=== PATIENT | male | born 1960 | race Asian ===

== ENCOUNTER 2022-03-18 06:04 | Day surgery (SDC) | payer BC ==
[2022-03-09 12:45] VITALS: BMI 25.8
[2022-03-18] MEDS ORDERED: PROPOFOL 20 ML ONE ×2 (07:13)
[2022-03-18] MEDS ORDERED: MIDAZOLAM HCL 2 MG/2 ML SINGLE DOSE VIAL ONE ×2 (07:13)
[2022-03-18] MEDS ORDERED: EPINEPHrine 1:1,000 1,000 MCG/ML ML ONE (07:19)
[2022-03-18] MEDS ORDERED: ROPIVACAINE HCL/PF 100 MG/20 ML VIAL ONE (07:24)
[2022-03-18] MEDS ORDERED: ONDANSETRON 4 MG/2 ML VIAL IVPUSH PRN (09:26)
[2022-03-18] MEDS ORDERED: oxyCODONE HCL 5 MG TABLET PO PRN (09:26)
[2022-03-18] MEDS ORDERED: LACTATED RINGERS SOLUTION 1,000 ML IV SCH (09:30)
[2022-03-18 10:25] VITALS: TEMP 98
[2022-03-18 11:57] VITALS: BP 118/71; PULSE 61
== END 2022-03-18 11:55 | disposition home or self-care (01) ==
LOC: FASU 06:04
PROVIDERS: ATTEND Orthopaedic Surgery
PROC: 0PB94ZZ Excision of Right Clavicle, Percutaneous Endoscopic Approach (ICD-10-PCS; 2022-03-18)
PROC: 0RBJ4ZZ Excision of Right Shoulder Joint, Percutaneous Endoscopic Approach (ICD-10-PCS; 2022-03-18)
PROC: 0LQ14ZZ Repair Right Shoulder Tendon, Percutaneous Endoscopic Approach (ICD-10-PCS; principal; 2022-03-18 08:14)
PROC: 0RNJ4ZZ Release Right Shoulder Joint, Percutaneous Endoscopic Approach (ICD-10-PCS; 2022-03-18 08:14)
DX: M75.101 Unspecified rotator cuff tear or rupture of right shoulder, not specified as traumatic (principal); M75.01 Adhesive capsulitis of right shoulder; M75.41 Impingement syndrome of right shoulder; M19.011 Primary osteoarthritis, right shoulder; S43.431A Superior glenoid labrum lesion of right shoulder, initial encounter; X58.XXXA Exposure to other specified factors, initial encounter; Y93.9 Activity, unspecified; Y92.9 Unspecified place or not applicable; M65.811 Other synovitis and tenosynovitis, right shoulder
CPT/HCPCS: 94760